=== PATIENT | female | born 1955 | race Caucasian/White ===

== ENCOUNTER 2021-09-26 14:17 | Emergency (ER) | payer MEDICARE ==
[~2021-09-26] VITALS: Ht 152.4 cm; Wt 91.2 kg
[2021-09-26] MEDS ORDERED: ATORVASTATIN CA20 MG PO (14:56)
[2021-09-26] MEDS ORDERED: AMLODIPINE BESYL5 MG PO (14:57)
[2021-09-26] MEDS ORDERED: POTASSIUM CHLO10 ME1 PO (14:57)
[2021-09-26] MEDS ORDERED: CLOPIDOGREL75 MG PO (14:57)
[2021-09-26] MEDS ORDERED: LOSARTAN-HCTZ1 EAC1 PO (14:57)
[2021-09-26] MEDS ORDERED: SULFAMETHOXAZO1 EAC1 PO (17:26)
[2021-09-26] MEDS ORDERED: MOBIC15 MG PO (17:26)
== END 2021-09-26 17:36 | disposition home or self-care (01) ==
LOC: ED 14:17
DX: M71.22 Synovial cyst of popliteal space [Baker], left knee (principal); L60.0 Ingrowing nail; I10 Essential (primary) hypertension; E78.00 Pure hypercholesterolemia, unspecified; Z88.0 Allergy status to penicillin; Z88.8 Allergy status to other drugs, medicaments and biological substances; Z91.048 Other nonmedicinal substance allergy status; Z79.899 Other long term (current) drug therapy
CPT/HCPCS: 85025; 85379; 99283

== ENCOUNTER 2024-06-17 06:45 | Emergency (ER) | payer MEDICARE ==
[~2024-06-17] VITALS: Ht 152.4 cm; Wt 90.0 kg
[~2024-06-17 06:45] MED LIST: ALBUTEROL2.5 MG/3 M INH; AMLODIPINE BESY10 MG PO; AMLODIPINE BESYL5 MG PO; ATORVASTATIN CA20 MG PO; CLOPIDOGREL75 MG PO; DOXYCYCLINE HY100 MG PO; GABAPENTIN100 MG PO; GUAIFEN-CODEINE10 ML PO; HYDROCODON-ACE1 EA10 PO; LOSARTAN-HCTZ1 EAC1 PO; MOBIC15 MG PO; MONTELUKAST SOD10 MG PO; NEBULIZER UNIT XX; POTASSIUM CHLO10 ME1 PO; PREDNISONE20 MG PO; SULFAMETHOXAZO1 EAC1 PO
[2024-06-17] MEDS ORDERED: ACETAMINOPHEN 500 MG TAB PO ONE (07:15)
[2024-06-17 10:15] VITALS: BP 198/88
== END 2024-06-17 10:15 | disposition home or self-care (01) ==
LOC: ED 06:45
DX: M25.561 Pain in right knee (principal); M25.461 Effusion, right knee; W19.XXXA Unspecified fall, initial encounter; I10 Essential (primary) hypertension; E78.00 Pure hypercholesterolemia, unspecified; Z86.73 Personal history of transient ischemic attack (TIA), and cerebral infarction without residual deficits; Z88.0 Allergy status to penicillin; Z88.8 Allergy status to other drugs, medicaments and biological substances; Z91.048 Other nonmedicinal substance allergy status; Z79.01 Long term (current) use of anticoagulants; Z79.899 Other long term (current) drug therapy
CPT/HCPCS: 73560; 73700; 99284; A9270